=== PATIENT | male | born 1945 | race Caucasian/White ===

== ENCOUNTER 2019-04-04 10:50 | Emergency (ER) | payer OTHER ==
[~2019-04-04] VITALS: Ht 160 cm; Wt 44.0 kg
[2019-04-04 12:29] LABS: Hematocrit 24.4 % (41.0-53.0)
[2019-04-04 12:31] LABS: Hemoglobin 8.2 g/dL (13.5-17.5); Mean Corpuscular Hemoglobin 29.1 pg (28.0-32.0); Mean Corpuscular Hgb Conc. 33.6 g/dL (32.0-36.0); Mean Corpuscular Volume 86.5 fL (80.0-100.0); Red Blood Cells 2.82 10^6/uL (4.5-5.90); Red Cell Distribution Width 18.8 % (11.8-14.3)
[2019-04-04 12:40] LABS: Platelet Count (auto) 12 10^3/uL (140-450); White Blood Cell 0.5 10^3/uL (4.4-10.8)
[2019-04-04 12:42] LABS: INR 1.01 (0.9-1.15); Partial Thromboplastin Time 29.1 sec (23.64-32.05)
[2019-04-04 12:51] LABS: BUN/Creatinine Ratio 29.7; Calcium 8.4 mg/dL (8.5-10.1); Potassium 4.2 mmol/L (3.5-5.1); Total Protein 6.5 g/dL (6.4-8.2)
[2019-04-04 12:54] LABS: Bilirubin, Total 0.7 mg/dL (0.2-1.0)
[2019-04-04 13:22] LABS: Band Neutrophils % (manual) 0; Basophils % (manual) 0 (0.0-2.0); Blast Cells 0; Eosinophils % (manual) 0 (0-7); Metamyelocytes % 0; Myelocytes % 0; Promyelocytes % 0
[2019-04-04 13:28] LABS: Lymphocytes % (manual) 70 (10.0-50.0); Monocytes % (manual) 7 (0-12); Reactive Lymphocytes 1
[2019-04-04 16:55] VITALS: BP 117/50
[2019-04-04 17:00] VITALS: BP 97/76
[2019-04-04 17:10] VITALS: BP 112/67
[2019-04-04 18:00] VITALS: BP 106/56
[2019-04-04 18:39] VITALS: BP 106/56
[2019-04-04 20:12] VITALS: BP 116/56
== END 2019-04-04 20:39 | disposition home or self-care (01) ==
LOC: ER 10:50 → EDBD 10:50 → ER 20:39
DX: D69.6 Thrombocytopenia, unspecified (principal); D46.4 Refractory anemia, unspecified
CPT/HCPCS: 36415; 36430; 71045; 80053; 83735; 85007; 85025; 85027; 85610; 85730; 86850; 86900; 86901; 93005; 94761; 99285; P9035

== ENCOUNTER 2019-04-12 11:24 | Inpatient (IN) | payer OTHER ==
[~2019-04-12] VITALS: Ht 160 cm; Wt 44.9 kg
[2019-04-12 12:27] LABS: Basophils # (auto) 0 uL; Eosinophils # (auto) 0 uL; Mean Corpuscular Hgb Conc. 33.3 g/dL (32.0-36.0); Monocytes # (auto) 0.1 uL; Neutrophils # (auto) 0.1 uL; Red Blood Cells 2.42 10^6/uL (4.5-5.90)
[2019-04-12 12:31] LABS: Basophils % (auto) 1.9 % (0.0-2.0); Eosinophils % (auto) 1.6 % (0.0-7.0); Hematocrit 20.9 % (41.0-53.0); Lymphocytes # (auto) 0.3 uL; Mean Corpuscular Hemoglobin 28.7 pg (28.0-32.0); Mean Corpuscular Volume 86.3 fL (80.0-100.0); Red Cell Distribution Width 18.5 % (11.8-14.3)
[2019-04-12 12:34] LABS: Lymphocytes % (auto) 55.4 % (10.0-50.0); Nucleated Red Blood Cells % 27.8 %
[2019-04-12 12:35] LABS: Monocytes % (auto) 24.1 % (0.0-12.0)
[2019-04-12 12:37] LABS: Platelet Count (auto) 14 10^3/uL (140-450); White Blood Cell 0.5 10^3/uL (4.4-10.8)
[2019-04-12 12:47] LABS: Albumin 2.8 g/dL (3.4-5.0); BUN/Creatinine Ratio 17.1; Calcium 8.1 mg/dL (8.5-10.1); Potassium 3.9 mmol/L (3.5-5.1)
[2019-04-12 12:49] LABS: Bilirubin, Total 0.7 mg/dL (0.2-1.0); Total Protein 6.4 g/dL (6.4-8.2)
[2019-04-12 15:35] VITALS: BP 117/58
[2019-04-12 15:50] VITALS: BP 118/62
[2019-04-12] MEDS ORDERED: HYDROcodone-ACET 5/325MG TAB PO PRN (17:00)
[2019-04-12] MEDS ORDERED: NITROGLYCERIN 0.4 MG SL TAB SL PRN (17:00)
[2019-04-12] MEDS ORDERED: ACETAMINOPHEN 500 MG TAB PO PRN (17:00)
[2019-04-12] MEDS ORDERED: TEMAZEPAM 15 MG CAP PO PRN (17:00)
[2019-04-12] MEDS: ACCU-CHEK COMFORT CURVE STRIP VI SCH ×2 (17:00→21:58)
[2019-04-12] MEDS ORDERED: DEXTROSE (50%) 50ML SYRG IV PRN (17:00)
[2019-04-12] MEDS ORDERED: LEVOFLOXACIN 500 MG TAB PO ONE (17:00)
[2019-04-12] MEDS: InsuLIN REG 1unit/0.01ml Soln (100units/ml) SC SCH ×2 (17:00→21:58)
[2019-04-12] MEDS ORDERED: PROMETHAZINE HCL 25 MG/ML 1ML IV PRN (17:00)
[2019-04-12] MEDS ORDERED: MORPHINE SULF INJ 2 MG/ML SYRINGE 1ML IV PRN ×2 (17:00)
[2019-04-12] MEDS: SODIUM CHLORIDE 0.9% 1,000 ML IV SCH (18:29)
[2019-04-12] MEDS: FAMOTIDINE (10MG/ML) 2ML VL IV SCH (18:30)
[2019-04-12 21:45] VITALS: BP 126/63
[2019-04-12 21:51] LABS: Urine WBC None Seen /hpf (0 - 3)
[2019-04-12 22:01] VITALS: BP 128/59
[2019-04-12 22:03] LABS: Urine Bacteria NONE SEEN /hpf (None Seen); Urine Blood Negative /uL (Negative); Urine Specific Gravity 1.014 (1.001-1.035)
[2019-04-12 22:30] VITALS: BP 136/68
--- NOTE | 2019-04-12 22:50 | NUR ---
RECEIVED PATIENT FROM ED, AWAKE, ALERT, ORIENTED X4, ABLE TO AMBULATE. NO S/S OF RESPIRATORY DISTRESS, DENIES ANY PAIN. WITH 2-LUMEN PICC ON THE RIGHT UPPER ARM RUNNING NS AT 100 ML/HR. SKIN IS INTACT. ORIENTED ON PLAN OF CARE. BED IS LOCKED AND IN LOWEST POSITION, SIDE RAILS UP X2, CALL LIGHT WITHIN REACH. WILL CONTINUE TO MONITOR.
[2019-04-12] MEDS ORDERED: PERCOT PO (23:48)
[2019-04-12] MEDS ORDERED: GLIP5TAB12 PO (23:48)
[2019-04-12] MEDS ORDERED: ONDA-143 PO (23:48)
[2019-04-12] MEDS ORDERED: GABA300C10 PO (23:48)
[2019-04-12] MEDS ORDERED: TEMA30CA PO (23:48)
[2019-04-12] MEDS ORDERED: ISAV1CAP2 PO (23:48)
[2019-04-12] MEDS ORDERED: FURO20TA3 PO (23:48)
[2019-04-12] MEDS ORDERED: ACYC1CAP23 PO (23:48)
[2019-04-12] MEDS ORDERED: ALLO300T2 PO (23:48)
[2019-04-12 23:50] VITALS: BP 138/74
[2019-04-13] MEDS: SODIUM CHLORIDE 0.9% 1,000 ML IV SCH ×2 (02:58→08:58)
[2019-04-13 05:00] VITALS: BP 115/60
[2019-04-13 05:33] LABS: Basophils # (auto) 0 uL; Eosinophils # (auto) 0 uL; Hemoglobin 8.3 g/dL (13.5-17.5); Lymphocytes # (auto) 0.4 uL; Mean Corpuscular Hemoglobin 28.5 pg (28.0-32.0); Monocytes # (auto) 0.1 uL; Neutrophils # (auto) 0.1 uL; Platelet Count (auto) 28 10^3/uL (140-450)
[2019-04-13 05:35] LABS: Basophils % (auto) 0.3 % (0.0-2.0); Eosinophils % (auto) 0.6 % (0.0-7.0); Hematocrit 24.3 % (41.0-53.0); Mean Corpuscular Hgb Conc. 34.1 g/dL (32.0-36.0); Mean Corpuscular Volume 83.8 fL (80.0-100.0); Neutrophils % (auto) 15.1 % (37.0-80.0); Red Cell Distribution Width 16.8 % (11.8-14.3)
[2019-04-13 05:37] LABS: Lymphocytes % (auto) 65.5 % (10.0-50.0); Monocytes % (auto) 18.5 % (0.0-12.0); Nucleated Red Blood Cells % 20.4 %; White Blood Cell 0.6 10^3/uL (4.4-10.8)
[2019-04-13 05:53] LABS: Albumin 2.5 g/dL (3.4-5.0); Calcium 7.7 mg/dL (8.5-10.1); Potassium 3.6 mmol/L (3.5-5.1)
[2019-04-13 05:56] LABS: BUN/Creatinine Ratio 20.7; Total Protein 5.7 g/dL (6.4-8.2)
[2019-04-13] MEDS: InsuLIN REG 1unit/0.01ml Soln (100units/ml) SC SCH ×3 (06:31→17:00)
[2019-04-13] MEDS: ACCU-CHEK COMFORT CURVE STRIP VI SCH ×3 (06:31→17:00)
--- NOTE | 2019-04-13 07:13 | NUR ---
CARE ENDORSED TO AM SHIFT RN
[2019-04-13 08:00] VITALS: BP 99/42
[2019-04-13] MEDS: FAMOTIDINE (10MG/ML) 2ML VL IV SCH (09:36)
[2019-04-13] MEDS ORDERED: LEVOFLOXACIN 250 MG TAB PO SCH (10:00)
--- NOTE | 2019-04-13 10:12 | NUR ---
PT SEEN BY DR. VERMA RECEIVED ORDER FOR MRI OF THORACIC SPINE WITH OR WITHOUT CONTRAST, PER DR. VERMA PT CAN GO HOME AFTER THE MRI.
--- NOTE | 2019-04-13 11:50 | NUR ---
PT SEEN BY DR. QUACH MADE AWARE PT WAS SEEN BY DR. VERMA AND PER DR. VERMA PT CAN GO HOME AFTER MRI.
[2019-04-13 13:03] VITALS: BP 90/39
[2019-04-13] MEDS ORDERED: GADOTERIDOL 279.3mg/mL 20ml Vial IV ONE (13:53)
--- NOTE | 2019-04-13 14:50 | NUR ---
DR. QUACH AND DR. VERMA MADE AWARE PT DID NOT COMPLETE THE MRI, TABLE IS TOO HARD THAT PT CANNOT TOLERATE IT. PER DR. VERMA IT IS OKAY PT CAN GO HOME.
[2019-04-13 16:32] VITALS: BP 96/45
--- NOTE | 2019-04-13 17:40 | NUR ---
Discharge instructions given as ordered. Encourage to follow up with DR. VERMA IN 1 WEEK, PT VERBALIZED HE WILL CALL DR. VERMA'S OFFICE TO MAKE AN APPOINTMENT as instructed. All questions and concerns addressed. Patient verbalized understanding. Medication reconciliation form completed and copy given to patient. DISCHARGED WITH PICC LINE PER DR. QUACH'S ORDER.. Telemetry unit returned to ICU. Patient taken to vehicle via wheelchair with all personal belongings, accompanied by staff and family member. No distress noted at time of departure.
== END 2019-04-13 17:40 | disposition home or self-care (01) | DRG 809 ==
LOC: EDBD 11:24 → ER 11:26 → TELE 11:27 → TELE-EAST 22:50
PROVIDERS: ADMIT Internal Medicine; ATTEND Internal Medicine
PROC: 30233N1 Transfusion of Nonautologous Red Blood Cells into Peripheral Vein, Percutaneous Approach (ICD-10-PCS; principal; 2019-04-12)
PROC: 30233R1 Transfusion of Nonautologous Platelets into Peripheral Vein, Percutaneous Approach (ICD-10-PCS; 2019-04-12)
DX: D61.818 Other pancytopenia (principal); C92.00 Acute myeloblastic leukemia, not having achieved remission; E44.0 Moderate protein-calorie malnutrition; E78.5 Hyperlipidemia, unspecified; E11.9 Type 2 diabetes mellitus without complications; G47.00 Insomnia, unspecified; Z80.8 Family history of malignant neoplasm of other organs or systems; Z83.3 Family history of diabetes mellitus; Z82.0 Family history of epilepsy and other diseases of the nervous system; Z83.6 Family history of other diseases of the respiratory system; Z80.0 Family history of malignant neoplasm of digestive organs; Z79.84 Long term (current) use of oral hypoglycemic drugs; Z79.899 Other long term (current) drug therapy; T45.1X5A Adverse effect of antineoplastic and immunosuppressive drugs, initial encounter
CPT/HCPCS: 36415; 71045; 80053; 81001; 82962; 83036; 85025; 85652; 86850; 86900; 86901; 86920; 93005; 94761; 96361; 96374; G0378; J3490

== ENCOUNTER 2019-04-23 10:19 | Inpatient (IN) | payer OTHER ==
[~2019-04-23] VITALS: Ht 152.4 cm; Wt 41.6 kg
[~2019-04-23 10:19] MED LIST: ACYC1CAP23 PO; ALLO300T2 PO; FURO20TA3 PO; GABA300C10 PO; GLIP5TAB12 PO; ISAV1CAP2 PO; ONDA-143 PO; PERCOT PO; TEMA30CA PO
[2019-04-23 11:39] LABS: Basophils # (auto) 0 uL; Eosinophils # (auto) 0 uL; Hemoglobin 7.4 g/dL (13.5-17.5); Mean Corpuscular Hemoglobin 28.3 pg (28.0-32.0); Monocytes # (auto) 0.2 uL; Neutrophils # (auto) 0.1 uL
[2019-04-23 11:41] LABS: Basophils % (auto) 2.8 % (0.0-2.0); Eosinophils % (auto) 1.7 % (0.0-7.0); Lymphocytes # (auto) 0.2 uL; Lymphocytes % (auto) 46.4 % (10.0-50.0); Mean Corpuscular Hgb Conc. 33.5 g/dL (32.0-36.0); Mean Corpuscular Volume 84.6 fL (80.0-100.0); Neutrophils % (auto) 20.2 % (37.0-80.0); Red Cell Distribution Width 17.2 % (11.8-14.3)
[2019-04-23 11:47] LABS: Monocytes % (auto) 28.9 % (0.0-12.0); Nucleated Red Blood Cells % 22.3 %
[2019-04-23 11:55] LABS: INR 1.16 (0.9-1.15); Partial Thromboplastin Time 30.9 sec (23.64-32.05)
[2019-04-23 11:57] LABS: Platelet Count (auto) 12 10^3/uL (140-450)
[2019-04-23 12:02] LABS: Potassium 3.8 mmol/L (3.5-5.1)
[2019-04-23 12:10] LABS: Albumin 2.8 g/dL (3.4-5.0); BUN/Creatinine Ratio 22.4; Calcium 8.2 mg/dL (8.5-10.1); Magnesium 2.3 mg/dL (1.6-2.6)
[2019-04-23 12:13] LABS: Bilirubin, Total 0.9 mg/dL (0.2-1.0); Total Protein 6.5 g/dL (6.4-8.2)
[2019-04-23 12:18] LABS: White Blood Cell 0.5 10^3/uL (4.4-10.8)
[2019-04-23] MEDS ORDERED: NITROGLYCERIN 0.4 MG SL TAB SL PRN (12:30)
[2019-04-23] MEDS ORDERED: MORPHINE SULFATE 4 MG/ML SYR/VIAL IV PRN (12:30)
[2019-04-23] MEDS ORDERED: VANCOMYCIN PER PHARMACY 0 MG IV SCH (12:30)
[2019-04-23] MEDS ORDERED: MORPHINE SULF INJ 2 MG/ML SYRINGE 1ML IV PRN (12:30)
[2019-04-23] MEDS ORDERED: PIPERACILLIN-TAZOB 3.375GM 100 ML IV ONE (12:45)
[2019-04-23] MEDS ORDERED: TEMAZEPAM 15 MG CAP PO PRN (12:45)
[2019-04-23] MEDS ORDERED: DEXTROSE (50%) 50ML SYRG IV PRN (13:00)
[2019-04-23] MEDS ORDERED: ACYCLOVIR 400 MG TAB PO ONE (13:15)
[2019-04-23] MEDS: PIPERACILLIN-TAZOB 3.375GM 100 ML IV SCH ×2 (13:41→18:44)
[2019-04-23] MEDS: SODIUM CHLORIDE 0.9% 1,000 ML IV SCH ×2 (13:42→22:30)
[2019-04-23] MEDS ORDERED: VANCOMYCIN 750mg/250ml 250 ML IV SCH (15:00)
[2019-04-23 15:59] LABS: Urine Bacteria NONE SEEN /hpf (None Seen); Urine Blood Negative /uL (Negative); Urine WBC 1 /hpf (0 - 3)
[2019-04-23 17:26] VITALS: BP 116/50
[2019-04-23 17:41] VITALS: BP 109/50
[2019-04-23 18:30] VITALS: BP 125/52
[2019-04-23] MEDS: OXYCODONE W/ ACETAMINOPHEN 5/325MG TABLET PO SCH ×2 (18:44→22:00)
[2019-04-23] MEDS: InsuLIN REG 1unit/0.01ml Soln (100units/ml) SC SCH (18:45)
[2019-04-23] MEDS: ACCU-CHEK COMFORT CURVE STRIP VI SCH (18:45)
[2019-04-23 22:00] VITALS: BP 104/47
[2019-04-23] MEDS: ACYCLOVIR 400 MG TAB PO SCH (22:00)
[2019-04-23] MEDS: GABAPENTIN 300 MG CAP PO SCH (22:00)
--- NOTE | 2019-04-23 22:00 | NUR ---
Telemetry admit from ER ALAYNA MATTHEWS admitted to Telemetry unit. Patient oriented to ALLY MATHEW RN primary RN, unit, room, bed, and unit policies regarding patient care and visiting hours. Patient now on continuous telemetry monitoring, tele box #[id number] and telemetry reading on arrival to unit is sinus rhythm at 87. Patient placed on bedside oxygen, weighed by bedscale and encouraged to call if they need something. All questions and concerns addressed, patient verbalized understanding. Neutropenic precautions in place.
[2019-04-24] VITALS (21 sets, daily range): BP systolic 82–131; BP diastolic 42–67
--- NOTE | 2019-04-24 04:30 | NUR ---
Right and left nare swabbed for MRSA screening and sent to lab.
--- NOTE | 2019-04-24 04:35 | NUR ---
Blood draw IV fluids paused. Patient laid supine, and PICC lumen cleansed; flushed with 10ml NS. 10ml blood drawn and wasted. 12ml drawn for lab. Connector cap replaced and lumen flushed with 10ml NS. No s/s of irritation or infection at insertion site. Patient repositioned, infusion restarted. Patient tolerated well.
[2019-04-24 05:14] LABS: Basophils # (auto) 0 uL; Basophils % (auto) 1.4 % (0.0-2.0); Eosinophils # (auto) 0 uL; Eosinophils % (auto) 1.6 % (0.0-7.0); Hematocrit 17.6 % (41.0-53.0); Lymphocytes # (auto) 0.4 uL; Mean Corpuscular Hemoglobin 28.3 pg (28.0-32.0); Mean Corpuscular Hgb Conc. 33.5 g/dL (32.0-36.0); Mean Corpuscular Volume 84.6 fL (80.0-100.0); Monocytes # (auto) 0 uL; Monocytes % (auto) 0.8 % (0.0-12.0); Neutrophils # (auto) 0.2 uL; Neutrophils % (auto) 36.3 % (37.0-80.0); Platelet Count (auto) 25 10^3/uL (140-450); Red Blood Cells 2.09 10^6/uL (4.5-5.90); Red Cell Distribution Width 17.3 % (11.8-14.3)
[2019-04-24 05:16] LABS: White Blood Cell 0.7 10^3/uL (4.4-10.8)
[2019-04-24 05:17] LABS: Hemoglobin 5.9 g/dL (13.5-17.5); Lymphocytes % (auto) 59.9 % (10.0-50.0); Nucleated Red Blood Cells % 16.1 %
--- NOTE | 2019-04-24 05:18 | NUR ---
Received call from Narayan in Hematology reporting critical WBC level of 0.7 and critical Hgb of 5.9. paged to report; Awaiting call back.
[2019-04-24 05:21] LABS: Albumin 2.5 g/dL (3.4-5.0); Calcium 8.1 mg/dL (8.5-10.1); Potassium 3.6 mmol/L (3.5-5.1)
[2019-04-24 05:34] LABS: BUN/Creatinine Ratio 18.3; Bilirubin, Total 0.8 mg/dL (0.2-1.0); Total Protein 5.7 g/dL (6.4-8.2)
[2019-04-24] MEDS: PIPERACILLIN-TAZOB 3.375GM 100 ML IV SCH ×5 (05:57→23:49)
[2019-04-24] MEDS: InsuLIN REG 1unit/0.01ml Soln (100units/ml) SC SCH ×5 (05:57→23:57)
[2019-04-24] MEDS: OXYCODONE W/ ACETAMINOPHEN 5/325MG TABLET PO SCH ×4 (05:57→22:01)
[2019-04-24] MEDS: ACCU-CHEK COMFORT CURVE STRIP VI SCH ×5 (05:58→23:50)
[2019-04-24] MEDS ORDERED: FILGRASTIM(TBO) 480 MCG/0.8 ML SYRG SC ONE (07:00)
--- NOTE | 2019-04-24 11:00 | NUR ---
PAGED DR DE LA TORRE FOR CLARIFICATION OF ORDERS. JAMIE GARCIA ORDERED 2 UNITS PRBC'S AT [address] DE LA TORRE ORDERED ANOTHER 2 UNITS. NEED TO CLARIFY IF DUPLICATE ORDER OR ADDITIONAL 2 UNITS TOTALLING 4 UNITS. WAITING FOR RESPONSE.
[2019-04-24] MEDS: SODIUM CHLORIDE 0.9% 1,000 ML IV SCH ×2 (11:18→17:50)
[2019-04-24] MEDS: PANTOPRAZOLE 40 MG TAB PO SCH (11:19)
[2019-04-24] MEDS: ACYCLOVIR 400 MG TAB PO SCH ×2 (11:19→22:01)
[2019-04-24] MEDS: VANCOMYCIN 750mg/250ml 250 ML IV SCH (11:19)
[2019-04-24] MEDS: ALLOPURINOL 300 MG TAB PO SCH (11:19)
--- NOTE | 2019-04-24 12:00 | NUR ---
REPAGED DR DE LA TORRE FOR ORDER CLARIFICATION. STILL WAITING FOR RESPONSE.
--- NOTE | 2019-04-24 13:30 | NUR ---
PAGED DR DE LA TORRE AGAIN FOR CLARIFICATION OF EARLIER ORDERS. NO RESPONSE YET
--- NOTE | 2019-04-24 14:30 | NUR ---
[address] DE LA TORRE REGARDING ORDER CLARIFICATION. NO RESPONSE YET
--- NOTE | 2019-04-24 15:09 | NUR ---
RECEIVED CALL FROM DR DE LA TORRE. HE INFORMED ME THAT HE HAD BEEN ATTEMPTING TO CONTACT ME. RECEIVED CLARIFICATION THAT HE ONLY WANTS A TOTAL OF 2 UNITS PRBC'S FOR THIS PATIENT AT THIS TIME AND I AM TO CANCEL HIS ADDITIONAL UNITS OF PRBC'S
--- NOTE | 2019-04-24 19:00 | NUR ---
Opening shift note Assumed care of patient from day shift RN. Patient is A&O x4, currently on bedside O2 at 2L NC. No SOB or distress noted. Reports 5/10 back pain, which he states is tolerable until next scheduled pain medication. Double lumen PICC line to right upper arm intact and patent, with no s/s of infection noted. Patient instructed on POC and all questions answered. Bed is in low locked position with side rails up x2. Call light is within reach and patient encouraged to call for assistance when needed. Neutropenic precautions in place. Will continue to monitor for changes PRN.
[2019-04-24] MEDS: GABAPENTIN 300 MG CAP PO SCH (22:01)
[2019-04-25 05:18] LABS: Basophils # (auto) 0 uL; Basophils % (auto) 0.6 % (0.0-2.0); Eosinophils # (auto) 0 uL; Eosinophils % (auto) 0.5 % (0.0-7.0); Hematocrit 27.4 % (41.0-53.0); Hemoglobin 9.4 g/dL (13.5-17.5); Lymphocytes # (auto) 0.6 uL; Lymphocytes % (auto) 44.3 % (10.0-50.0); Mean Corpuscular Hemoglobin 29.3 pg (28.0-32.0); Mean Corpuscular Hgb Conc. 34.4 g/dL (32.0-36.0); Mean Corpuscular Volume 85.3 fL (80.0-100.0); Monocytes # (auto) 0.2 uL; Monocytes % (auto) 15.1 % (0.0-12.0); Neutrophils # (auto) 0.6 uL; Neutrophils % (auto) 39.5 % (37.0-80.0); Nucleated Red Blood Cells % 20.1 %; Platelet Count (auto) 33 10^3/uL (140-450); Red Blood Cells 3.22 10^6/uL (4.5-5.90); Red Cell Distribution Width 16.5 % (11.8-14.3)
[2019-04-25 05:20] LABS: White Blood Cell 1.4 10^3/uL (4.4-10.8)
--- NOTE | 2019-04-25 05:21 | NUR ---
Received call from Narayan in hematology reports critical WBC of 1.4; an increase from previous draw of 0.7. MD is aware of low WBC.
[2019-04-25 05:38] LABS: Albumin 2.4 g/dL (3.4-5.0); Potassium 3.6 mmol/L (3.5-5.1)
[2019-04-25 05:42] VITALS: BP 113/51
[2019-04-25 05:42] LABS: BUN/Creatinine Ratio 14.1; Bilirubin, Total 0.9 mg/dL (0.2-1.0); Calcium 8.2 mg/dL (8.5-10.1); Total Protein 5.7 g/dL (6.4-8.2)
[2019-04-25] MEDS: InsuLIN REG 1unit/0.01ml Soln (100units/ml) SC SCH ×3 (06:00→17:16)
[2019-04-25] MEDS: SODIUM CHLORIDE 0.9% 1,000 ML IV SCH ×2 (06:23→15:07)
[2019-04-25] MEDS: VANCOMYCIN 750mg/250ml 250 ML IV SCH (06:23)
[2019-04-25] MEDS: OXYCODONE W/ ACETAMINOPHEN 5/325MG TABLET PO SCH ×4 (06:23→21:59)
[2019-04-25] MEDS: PIPERACILLIN-TAZOB 3.375GM 100 ML IV SCH ×3 (06:23→17:44)
[2019-04-25] MEDS: ACCU-CHEK COMFORT CURVE STRIP VI SCH ×3 (06:24→17:16)
[2019-04-25 08:00] VITALS: BP 104/51
[2019-04-25 08:34] VITALS: BP 104/51
[2019-04-25] MEDS: ISAVUCONAZONIUM SULFATE 186 MG PO SCH (09:54)
[2019-04-25] MEDS: PANTOPRAZOLE 40 MG TAB PO SCH (10:20)
[2019-04-25] MEDS: ALLOPURINOL 300 MG TAB PO SCH (10:20)
[2019-04-25] MEDS: ACYCLOVIR 400 MG TAB PO SCH ×2 (10:20→21:58)
[2019-04-25 12:42] VITALS: BP 98/49
[2019-04-25 16:58] VITALS: BP 116/62
--- NOTE | 2019-04-25 20:00 | NUR ---
RECEIVE IN BED WATCHING TV NO VOICED COMPLAINTS
[2019-04-25] MEDS: GABAPENTIN 300 MG CAP PO SCH (21:58)
[2019-04-25 22:00] VITALS: BP 116/49
[2019-04-26] MEDS: ACCU-CHEK COMFORT CURVE STRIP VI SCH ×3 (00:08→11:58)
[2019-04-26] MEDS: SODIUM CHLORIDE 0.9% 1,000 ML IV SCH ×2 (00:30→09:08)
[2019-04-26] MEDS: VANCOMYCIN 750mg/250ml 250 ML IV SCH (02:28)
[2019-04-26 05:15] LABS: Hematocrit 26.4 % (41.0-53.0); Hemoglobin 9.1 g/dL (13.5-17.5); Mean Corpuscular Hemoglobin 29.5 pg (28.0-32.0); Mean Corpuscular Hgb Conc. 34.6 g/dL (32.0-36.0); Mean Corpuscular Volume 85.3 fL (80.0-100.0); Platelet Count (auto) 26 10^3/uL (140-450); Red Cell Distribution Width 16.2 % (11.8-14.3)
[2019-04-26 05:22] LABS: White Blood Cell 1.8 10^3/uL (4.4-10.8)
[2019-04-26 05:23] LABS: Basophils % (manual) 0 (0.0-2.0); Eosinophils % (manual) 0 (0-7); Promyelocytes % 0
[2019-04-26 05:46] VITALS: BP 128/63
[2019-04-26] MEDS: OXYCODONE W/ ACETAMINOPHEN 5/325MG TABLET PO SCH ×2 (05:52→11:09)
[2019-04-26] MEDS: PIPERACILLIN-TAZOB 3.375GM 100 ML IV SCH ×3 (05:52→11:09)
[2019-04-26] MEDS: InsuLIN REG 1unit/0.01ml Soln (100units/ml) SC SCH ×3 (05:55→11:58)
--- NOTE | 2019-04-26 06:50 | NUR ---
WBC 1.8 ENDORSED TO SHANNON UNDERWOOD
[2019-04-26 07:28] LABS: Albumin 2.4 g/dL (3.4-5.0); Calcium 8.2 mg/dL (8.5-10.1); Potassium 3.7 mmol/L (3.5-5.1)
[2019-04-26 07:31] LABS: Bilirubin, Total 0.6 mg/dL (0.2-1.0); Total Protein 5.8 g/dL (6.4-8.2)
[2019-04-26 08:00] VITALS: BP 101/59
[2019-04-26] MEDS: PANTOPRAZOLE 40 MG TAB PO SCH (09:07)
[2019-04-26] MEDS: ISAVUCONAZONIUM SULFATE 186 MG PO SCH (09:07)
[2019-04-26] MEDS: ALLOPURINOL 300 MG TAB PO SCH (09:07)
[2019-04-26] MEDS: ACYCLOVIR 400 MG TAB PO SCH (09:08)
[2019-04-26 09:23] VITALS: BP 101/59
[2019-04-26 12:59] LABS: Metamyelocytes % 1
--- NOTE | 2019-04-26 13:30 | NUR ---
lab reported differential showed blasts. pathology review in progress. dr bell informed
--- NOTE | 2019-04-26 13:34 | NUR ---
Nutrition Assessment Est. Energy needs: 1251-5558 kcals (30-35 kcals/kg IBW of 48kg) Est. Protein needs: 48-72 g/day (1.0-1.5 g/kg IBW of 48 kg). Will reassess prn Addendum: 04/26/19 at [address] Amended: Links added.
[2019-04-26 13:48] VITALS: BP 121/69
[2019-04-26] MEDS ORDERED: VANCOMYCIN 750mg/250ml 250 ML IV SCH (14:00)
[2019-04-26 14:05] VITALS: BP 121/69
[2019-04-26 14:14] VITALS: BP 121/69
--- NOTE | 2019-04-26 15:22 | NUR ---
PATIENT DISCHARGED HOME WITH [employer] V[employer]CHER. TELEMETRY BOX REMOVED AND RETURNED TO TELEMETRY DEPARTMENT. ALL DISCHARGE INSTRUCTIONS GIVEN. ALL DISCHARGE PAPERWORK SIGNED.
[2019-04-26 17:00] LABS: Band Neutrophils % (manual) 2; Lymphocytes % (manual) 47 (10.0-50.0); Monocytes % (manual) 4 (0-12); Myelocytes % 3; Reactive Lymphocytes 4
[2019-04-26 17:01] LABS: Blast Cells 12
== END 2019-04-26 15:15 | disposition home or self-care (01) | DRG 835 ==
LOC: EDBD 10:19 → ER 10:27 → TELE 10:28 → TELE-CENTR 21:19
PROVIDERS: ADMIT Nurse Practitioner Acute Care; ATTEND Internal Medicine
PROC: 30233R1 Transfusion of Nonautologous Platelets into Peripheral Vein, Percutaneous Approach (ICD-10-PCS; principal; 2019-04-23)
PROC: 30233N1 Transfusion of Nonautologous Red Blood Cells into Peripheral Vein, Percutaneous Approach (ICD-10-PCS; 2019-04-24)
PROC: 02HV33Z Insertion of Infusion Device into Superior Vena Cava, Percutaneous Approach (ICD-10-PCS; 2019-04-24)
DX: C92.00 Acute myeloblastic leukemia, not having achieved remission (principal); D61.818 Other pancytopenia; E44.0 Moderate protein-calorie malnutrition; R78.81 Bacteremia; Z68.1 Body mass index [BMI] 19.9 or less, adult; E78.5 Hyperlipidemia, unspecified; E11.9 Type 2 diabetes mellitus without complications; I10 Essential (primary) hypertension; G89.29 Other chronic pain; M54.5 Low back pain; K21.9 Gastro-esophageal reflux disease without esophagitis; J44.9 Chronic obstructive pulmonary disease, unspecified; E87.6 Hypokalemia; Z79.84 Long term (current) use of oral hypoglycemic drugs; Z80.0 Family history of malignant neoplasm of digestive organs; Z80.8 Family history of malignant neoplasm of other organs or systems; Z82.0 Family history of epilepsy and other diseases of the nervous system; Z82.5 Family history of asthma and other chronic lower respiratory diseases; Z83.3 Family history of diabetes mellitus
CPT/HCPCS: 36415; 36430; 71045; 80053; 80202; 81001; 82962; 83036; 83605; 83735; 85007; 85025; 85027; 85610; 85730; 86850; 86900; 86901; 86920; 87040; 87077; 87081; 87186; 93005; 96365; G0378; J1447; J2543

== ENCOUNTER 2019-05-08 11:40 | Emergency (ER) | payer OTHER ==
[~2019-05-08] VITALS: Ht 160 cm; Wt 45.4 kg
[2019-05-08] MEDS ORDERED: SODIUM CHLORIDE 0.9% 1,000 ML IV ONE (12:18)
[2019-05-08 12:45] LABS: Hemoglobin 7.7 g/dL (13.5-17.5); Mean Corpuscular Volume 86.2 fL (80.0-100.0)
[2019-05-08 12:48] LABS: Mean Corpuscular Hgb Conc. 33.6 g/dL (32.0-36.0); Red Blood Cells 2.66 10^6/uL (4.5-5.90); Red Cell Distribution Width 17.1 % (11.8-14.3)
[2019-05-08 12:58] LABS: Platelet Count (auto) 15 10^3/uL (140-450); White Blood Cell 1.1 10^3/uL (4.4-10.8)
[2019-05-08 13:00] LABS: Basophils % (manual) 0 (0.0-2.0); Eosinophils % (manual) 0 (0-7); INR 1.11 (0.9-1.15); Myelocytes % 0; Partial Thromboplastin Time 31.6 sec (23.64-32.05); Promyelocytes % 0; Reactive Lymphocytes 0
[2019-05-08 13:07] LABS: BUN/Creatinine Ratio 23.4; Calcium 8.2 mg/dL (8.5-10.1); Potassium 4.4 mmol/L (3.5-5.1)
[2019-05-08 13:10] LABS: Bilirubin, Total 0.8 mg/dL (0.2-1.0); Total Protein 6.7 g/dL (6.4-8.2)
[2019-05-08 14:45] VITALS: BP 110/52
[2019-05-08 14:57] LABS: Band Neutrophils % (manual) 1
[2019-05-08 14:58] LABS: Blast Cells 10; Lymphocytes % (manual) 69 (10.0-50.0); Metamyelocytes % 1; Monocytes % (manual) 3 (0-12)
[2019-05-08 15:00] VITALS: BP 109/58
[2019-05-08 16:00] VITALS: BP 115/58
[2019-05-08 16:45] VITALS: BP 115/58
[2019-05-08 16:52] VITALS: BP 127/77
== END 2019-05-08 18:41 | disposition home or self-care (01) ==
LOC: ER 11:40 → EDBD 11:40 → ER 18:41
DX: D61.818 Other pancytopenia (principal); E44.0 Moderate protein-calorie malnutrition; D64.9 Anemia, unspecified; J44.9 Chronic obstructive pulmonary disease, unspecified; E11.9 Type 2 diabetes mellitus without complications; E78.5 Hyperlipidemia, unspecified; I10 Essential (primary) hypertension
CPT/HCPCS: 36415; 36430; 71045; 80053; 85007; 85027; 85610; 85730; 86850; 86900; 86901; 93005; 99285; P9035